=== PATIENT | female | born 1980 | race Caucasian/White ===

== ENCOUNTER 2016-06-28 17:27 | Inpatient (IN) | payer MEDICAID ==
[~2016-06-28] VITALS: Ht 152.4 cm; Wt 87.0 kg
--- NOTE | 2016-06-28 18:39 | TRIAGE ---
OB Triage Datetime Report Generated by CPN: 06/28/2016 18:39 Datetime: 06/28/2016 18:35 Stage of : OB Triage Maternal Assessment Level of Consciousness: Fully Conscious DTR's/Clonus: DTRs 1+ Headache: Denies Breath Sounds, Left: Clear and Equal Breath Sounds, Right: Clear and Equal Nausea/Vomiting: Denies RUQ Epigastric Pain: Denies Monitor Mode: External Duration (sec)2399: 40-70 Quality: Mild Pattern: Normal: <= 5 Contractions in 10 Minutes Resting Tone Hague: Relaxed Heart Rate FHR Baseline Rate: 120 Monitor Mode: External US Variability: Moderate 6-25 bpm Accelerations: 15X15 Decelerations: None Pain Presence: None/Denies Pain Type: N/A Pain Goal: 3 Vaginal Exam Membrane Status: Intact Datetime: 06/28/2016 18:24 Time of Arrival: 06/28/2016 18:24 EGA: 38.5 Arrived By: Ambulatory Arrived From: Home Chief Complaint: PT CAME IN FROM CLINIC TO BE ADMITTED IN LABOR AND DELIVERY. PT PLACED IN TRIAGE. MONITOR IN PLACED, PT STATS FEELING SOME UC'S BUT SHE WAS FEELIN [place] UC'S LAST NIGHT. Additional Patient Complaints: NONE Provider Notified: ALLAN Initial Plan: MONITOR AND VE Datetime: 06/28/2016 17:59 Stage of : OB Triage Maternal Assessment Level of Consciousness: Fully Conscious DTR's/Clonus: DTRs 1+ Headache: Denies Blurred Vision: No Respiratory Effort: Unlabored Breath Sounds, Left: Clear and Equal Breath Sounds, Right: Clear and Equal Nausea/Vomiting: Denies RUQ Epigastric Pain: Denies Facial Edema: None Labor Evaluation Frequency: 2 Monitor Mode: External Duration (sec)0849: 40-70 Quality: Mild Pattern: Normal: <= 5 Contractions in 10 Minutes Resting Tone Hague: Relaxed Heart Rate FHR Baseline Rate: 120 Monitor Mode: External US Variability: Moderate 6-25 bpm Accelerations: 15X15 Decelerations: None Category: Category I Pain Assessment Pain Scale: 0 Pain Presence: None/Denies Pain Type: N/A Pain Goal: 3 Vaginal Exam Membrane Status: Intact
[2016-06-28 18:47] VITALS: BP 136/82; PULSE 18; RESP 19; Ht 152.4 cm; Wt 87.0 kg
[2016-06-28] MEDS ORDERED: PRENAT PO (18:48)
[2016-06-28] MEDS ORDERED: LACTATED RINGER'S 1,000 ML IV SCH (19:21)
[2016-06-28] MEDS ORDERED: CARBOPROST 250 MCG INJ IM PRN (19:30)
[2016-06-28] MEDS ORDERED: OXYTOCIN 30 UNITS/LR 500 ML IV SCH (19:30)
[2016-06-28] MEDS ORDERED: MISOPROSTOL 200 MCG TAB PR PRN (19:30)
[2016-06-28] MEDS ORDERED: METHYLERGONOVINE 0.2 MG INJ IM PRN (19:30)
[2016-06-28] MEDS ORDERED: OXYTOCIN 30 UNITS/LR 500 ML IV PRN (19:30)
[2016-06-28] MEDS ORDERED: CEFAZOLIN 2 GM/50 ML (PMX) 50 ML IV SCH (19:30)
[2016-06-28 19:39] LABS: ADD SCAN DIFF NO
[2016-06-28 19:41] LABS: BASOPHILS % 0.1 % (0.0-2.0); EOSINOPHILS # 0.1 10^3/ul (0.0-0.5); EOSINOPHILS % 1.1 % (0.0-7.0); HEMATOCRIT 35.8 % (37.0-47.0); HEMOGLOBIN 11.5 g/dl (12.0-16.0); LYMPHOCYTES # 2.3 10^3/ul (0.8-2.9); LYMPHOCYTES % 26.6 % (15.0-51.0); MEAN CORPUSCULAR HEMOGLOBIN 28.5 pg (29.0-33.0); MEAN CORPUSCULAR HGB CONC 32.1 g/dl (32.0-37.0); MEAN CORPUSCULAR VOLUME 88.8 fl (82.0-101.0); MEAN PLATELET VOLUME 9.6 fl (7.4-10.4); MONOCYTE # 0.6 10^3/ul (0.3-0.9); MONOCYTES % 6.9 % (0.0-11.0); NEUTROPHIL # 5.7 10^3/ul (1.6-7.5); NEUTROPHILS % 64.3 % (39.0-77.0); PLATELET COUNT 202 10^3/UL (140-415); RED BLOOD COUNT 4.03 10^6/ul (4.20-5.40); RED CELL DISTRIBUTION WIDTH 15.6 % (11.5-14.5); WHITE BLOOD COUNT 8.8 10^3/ul (4.8-10.8)
[2016-06-28 20:22] LABS: INR 0.93; PROTIME 12.5 Sec (12.2-14.2)
[2016-06-28 20:23] LABS: PARTIAL THROMBOPLASTIN TIME 24.9 Sec (25.0-35.0)
[2016-06-28] MEDS ORDERED: LACTATED RINGER'S 1,000 ML IV ONE (21:46)
[2016-06-28] MEDS ORDERED: METOCLOPRAMIDE 10 MG INJ IV ONE (22:00)
[2016-06-28] MEDS ORDERED: CITRIC ACID/NA CITRATE 30 ML CUP PO ONE (22:00)
[2016-06-28] MEDS ORDERED: FAMOTIDINE 20 MG INJ IV ONE (22:00)
[2016-06-28] MEDS ORDERED: FENTAnyl 50 MCG/ML VIAL ONE (22:01)
[2016-06-28] MEDS ORDERED: morphine SULFATE/PF (10 MG/10 ML) INJ ONE (22:01)
--- NOTE | 2016-06-28 22:07 | HP ---
Date/Time of Note Date/Time of Note DATE: 06/28/16 TIME: 22:05 OB - History Hx of Present Free Text/Dictation @38+5 wks GA with Hx of 2 previous c/section in early labor GDM Case D/w and Delivery is recommended : 3 Para: 2 Care: Good Care Ultrasounds: Normal mid trimester US Obstetrical Complications: Gestational Diabetes Medical Complications: None Past Family/Social History * Past Medical, Surgical, Family and Obstetric Histories reviewed from chart. OB Admission Exam Vital Signs Vital Signs Vital Signs Date Time Temp Pulse Resp B/P Pulse Ox O2 Delivery O2 Flow Rate FiO2 06/28/16 18:47 98.2 18 19 136/82 99 Room Air Physical Exam Abdomen: WNL Extremities: Normal Cervical Dilatation: 1cm Effacement: 50% Station: -1 Membranes: Intact Heart Rate: 140's Accelerations: Accelerations Present Decelerations: No Decelerations Varibility: Moderate Contractions on Admission: 6-10 Minutes Apart Last 72 hours Lab Results CBC & BMP 06/28/16 19:25 OB Assessment/Plan Reason for admission: section Plan: Section KAI LEMUS M.D. June 28, 2016 22:07
--- NOTE | 2016-06-28 22:08 | OPR ---
Operative Report Planned Procedure Free Text/Dictation @38+5 wks GA with Hx of 2 previous c/section in early labor GDM Case D/w and Delivery is recommended Procedure date June 28, 2016 Procedure(s) Repeat c/section,removal of left paratubal cyst Performed by: KAI LEMUS M.D. Assisting provider: POLLY GROSS Anesthesiologist: PHOEBE MILLER MD Pre-procedure diagnosis @38+5 wks GA with Hx of 2 previous c/section in early labor GDM Case D/w and Delivery is recommended Anesthesia Type: spinal Procedure Description Under satisfactory [] anesthesia, the patient was prepped and draped and placed in a supine position, tilted to the left. Pfannenstiel incision was made, carried through the subcutaneous tissue. Bleeders brought under control with electrocautery. Fascia incised to the length of the incision. Rectus muscles from the fascia, divided midline. Peritoneum exposed, entered through a transverse incision. Exploration of abdomen revealed gravid uterus. Bladder flap was developed. Transverse incision was made in the lower segment of the uterus. Amniotic sac ruptured. [] amniotic fluid noted. [] Nasal oropharyngeal suction was performed. The baby was handed to the team for immediate attention. The placenta was delivered manually intact. Uterine cavity was cleaned with wet sponge and drainage established. Uterus closed in 2 layers using [] in continuous fashion. The left Paratubal cyst was cautherized and removed ,Hemostasis establishedPeritoneal cavity irrigated with warm saline. Sponge, needle and instrument count reported to be correct. Abdominal peritoneum closed with [] continuously. Rectus muscle approximated with []. Fascia closed with [], and skin closed with dermoband. Estimated blood loss [200 ]mL. Urine bag contained []mL of urine Post-Procedure Findings: Live Baby [], Apgars [] and [], weight [], position [], [] presentation []cord. Specimen removed: Yes Complications: None Pt Condition post procedure: stable Disposition: PACU Physician Certification I, the undersigned physician, hereby certify that I have discussed the procedure described in this consent form with this patient (or the patient's legal business services representative), including: * The risk and benefits of the procedure; * Any adverse reactions that may reasonably be expected to occur; * Any alternative efficacious methods of treatment which may be medically viable ; * The potential problems that may occur during recuperation; * Potential for blood transfusion and associated risks/benefits; and * Any research or economic interest I may have regarding this treatment. I further certify that the patient/legally responsible person was encouraged to ask question and that all questions were answered. KAI LEMUS M.D. June 28, 2016 22:08
[2016-06-28] MEDS ORDERED: ONDANSETRON 4 MG INJ ONE (22:42)
[2016-06-28] MEDS ORDERED: OXYTOCIN 30 UNITS/LR 500 ML IV ONE (22:45)
[2016-06-28] MEDS ORDERED: ZOLPIDEM 5 MG TAB PO PRN (23:00)
[2016-06-28] MEDS ORDERED: FENTAnyl 50 MCG/ML VIAL IV PRN (23:00)
[2016-06-28] MEDS ORDERED: NALOXONE (0.4 MG/ML) INJ IV PRN (23:00)
[2016-06-28] MEDS ORDERED: ONDANSETRON 4 MG INJ IV PRN ×2 (23:00)
[2016-06-28] MEDS ORDERED: HYDROmorphONE 1 MG/ML SYG IV PRN ×2 (23:00)
[2016-06-28] MEDS ORDERED: KETOROLAC 30 MG INJ IV PRN ×2 (23:00)
[2016-06-28] MEDS ORDERED: DIPHENHYDRAMINE 50 MG INJ IV PRN ×2 (23:00)
[2016-06-28] MEDS ORDERED: PROCHLORPERAZINE 10 MG INJ IV PRN ×2 (23:00)
[2016-06-28] MEDS ORDERED: MEPERIDINE 25 MG INJ IV PRN (23:00)
[2016-06-28] MEDS ORDERED: HYDROmorphONE (0.2 MG/ML) 10ML SYG IV PRN (23:00)
[2016-06-29] MEDS ORDERED: CARBOPROST 250 MCG INJ IM PRN (01:30)
[2016-06-29] MEDS ORDERED: LANOLIN 7 GM TUBE TOP PRN (01:30)
[2016-06-29] MEDS ORDERED: METHYLERGONOVINE 0.2 MG INJ IM PRN (01:30)
[2016-06-29] MEDS ORDERED: OXYCODONE/ACETAMINOPHEN (5/325) TAB PO PRN (01:30)
[2016-06-29] MEDS ORDERED: MISOPROSTOL 200 MCG TAB PR PRN (01:30)
[2016-06-29] MEDS ORDERED: OXYTOCIN 30 UNITS/LR 500 ML IV PRN (01:30)
[2016-06-29 02:10] VITALS: BP 129/79; PULSE 73; RESP 19
[2016-06-29 03:10] VITALS: BP 116/58; PULSE 83; RESP 18
[2016-06-29] MEDS: LACTATED RINGER'S 1,000 ML IV SCH ×4 (05:56→20:37)
[2016-06-29 08:00] VITALS: BP 126/60; PULSE 71; RESP 17
[2016-06-29 08:56] LABS: ADD SCAN DIFF NO
[2016-06-29] MEDS: SENNA/DOCUSATE NA (8.6MG/50MG) TAB PO SCH ×2 (09:00→20:31)
[2016-06-29] MEDS: MULTIVIT/MIN/FOLATE/IRON/PREN TAB PO SCH (09:00)
[2016-06-29 09:01] LABS: BASOPHILS % 0.1 % (0.0-2.0); EOSINOPHILS % 0.2 % (0.0-7.0); HEMATOCRIT 32.1 % (37.0-47.0); HEMOGLOBIN 10.4 g/dl (12.0-16.0); LYMPHOCYTES # 1.7 10^3/ul (0.8-2.9); LYMPHOCYTES % 18.1 % (15.0-51.0); MEAN CORPUSCULAR HGB CONC 32.4 g/dl (32.0-37.0); MEAN CORPUSCULAR VOLUME 89.4 fl (82.0-101.0); MEAN PLATELET VOLUME 9.8 fl (7.4-10.4); MONOCYTE # 0.6 10^3/ul (0.3-0.9); NEUTROPHIL # 7.2 10^3/ul (1.6-7.5); PLATELET COUNT 204 10^3/UL (140-415); RED BLOOD COUNT 3.59 10^6/ul (4.20-5.40); RED CELL DISTRIBUTION WIDTH 15.1 % (11.5-14.5); WHITE BLOOD COUNT 9.5 10^3/ul (4.8-10.8)
[2016-06-29 12:05] VITALS: BP 114/57; PULSE 71; RESP 18
--- NOTE | 2016-06-29 15:10 | QN ---
Documentation Comment PPD#1 patient is stable afebrile +adequate urine +Flatus No VB VS stable GEn NAD Abd soft PONCHO ND Dressing to be removed Genitalia No blood at perinium --->discharge plan tomorrow KAI LEMUS M.D. June 29, 2016 15:10
[2016-06-29 16:10] VITALS: BP 105/59; PULSE 73; RESP 19
[2016-06-29 19:35] VITALS: BP 103/55; PULSE 73; RESP 18
[2016-06-30] VITALS: BP 134/86; PULSE 86; RESP 18
[2016-06-30] MEDS: IBUPROFEN 600 MG TAB PO SCH ×4 (00:24→18:23)
[2016-06-30 08:00] VITALS: BP 114/57; PULSE 75; RESP 17
[2016-06-30] MEDS: MULTIVIT/MIN/FOLATE/IRON/PREN TAB PO SCH (09:26)
[2016-06-30] MEDS: SENNA/DOCUSATE NA (8.6MG/50MG) TAB PO SCH ×2 (09:26→20:37)
--- NOTE | 2016-06-30 14:25 | QN ---
Documentation Comment POD#2 patient is stable afebrile +adequate urine +BM +voids No VB VS stable GEn NAD Abd soft PONCHO ND Incision intact Genitalia No blood at perinium --->discharge plan tomowwor --->ambulation KAI LEMUS M.D. June 30, 2016 14:24
--- NOTE | 2016-06-30 14:26 | DS ---
Date/Time of Note Date/Time of Note DATE: 06/30/16 TIME: 14:25 Discharge Summary Admission/Discharge Info Admit Date/Time June 28, 2016 at 18:45 Discharge Date/Time Final Diagnosis Repeat c/section Term Patient Condition: Stable Procedures Repeat c/section +removal of paratubal cyst Hospital Course Uneventful Home Meds Reported Medications Multivit/Min/Fol Ac/Iron/Pren* ( S*) 1 Tab Tab, 1 TAB PO DAILY, TAB 06/28/16 Primary Care Provider Care Physician KAI Sun M.D. June 30, 2016 14:26
[2016-06-30 16:00] VITALS: BP 114/71; PULSE 74; RESP 18
[2016-06-30] MEDS: GUAIFENESIN/CODEINE 5ML CUP PO PRN (18:45)
[2016-06-30 20:00] VITALS: BP 126/77; PULSE 70; RESP 18
[2016-07-01] MEDS: IBUPROFEN 600 MG TAB PO SCH ×4 (01:23→17:57)
[2016-07-01] MEDS: GUAIFENESIN/CODEINE 5ML CUP PO PRN ×2 (01:29→09:20)
[2016-07-01 04:00] VITALS: BP 107/59; PULSE 70; RESP 18
[2016-07-01 08:00] VITALS: BP 120/67; RESP 18
[2016-07-01] MEDS ORDERED: DIPHTH/TET/ACEL PERTUSS (ADULT) 0.5 ML VIAL IM* ONE (09:00)
[2016-07-01] MEDS: MULTIVIT/MIN/FOLATE/IRON/PREN TAB PO SCH (09:20)
[2016-07-01] MEDS: SENNA/DOCUSATE NA (8.6MG/50MG) TAB PO SCH (09:20)
[2016-07-01 16:00] VITALS: BP 128/74; PULSE 61; RESP 18
== END 2016-07-01 19:06 | disposition home or self-care (01) | DRG 766 ==
LOC: OBT 17:27 → L-D 17:28 → OBT 18:45 → L-D 18:45 → PP1 06-29 02:12
PROVIDERS: ADMIT Obstetrics & Gynecology; ATTEND Obstetrics & Gynecology
PROC: 0UB60ZZ Excision of Left Fallopian Tube, Open Approach (ICD-10-PCS; 2016-06-28)
PROC: 10D00Z1 Extraction of Products of Conception, Low, Open Approach (ICD-10-PCS; principal; 2016-06-28 22:00)
DX: O24.429 Gestational diabetes mellitus in childbirth, unspecified control (principal); N83.8 Other noninflammatory disorders of ovary, fallopian tube and broad ligament; O34.211 Maternal care for low transverse scar from previous cesarean delivery; Z3A.38 38 weeks gestation of pregnancy; Z37.0 Single live birth
CPT/HCPCS: 82947; 85025; 85610; 85730; 86592; 86850; 86900; 86901; 88304; 90715; 94760; 99464; G0463; J0690; J1885; J2274; J2405; J2590; J2765; J3010; J7120